=== PATIENT | male | born 1965 | race Caucasian/White ===

== ENCOUNTER 2022-11-30 09:00 | Inpatient (IN) | payer OTHER ==
[~2022-11-30] VITALS: Ht 182.9 cm; Wt 88.5 kg
[2022-11-30] MEDS ORDERED: LIPITOR20 MG PO (09:56)
[2022-12-05] MEDS ORDERED: ATORVASTATIN CA10 MG (08:15)
[2022-12-05] MEDS ORDERED: CELECOXIB200 MG (08:15)
[2022-12-05] MEDS ORDERED: BUPROPION XL300 MG (08:15)
[2022-12-05] MEDS ORDERED: CLONAZEPAM2 MG (08:15)
[2022-12-06] MEDS ORDERED: INTESTINEX680 M1 PO (08:24)
[2022-12-06] MEDS ORDERED: LEVSIN/SL0.125 MG SL (08:25)
== END 2022-12-06 09:53 | disposition home or self-care (01) | DRG 395 ==
LOC: O/R 12-05 05:12 → SURH 12-05 05:12
PROVIDERS: ADMIT Surgery; ATTEND Surgery
PROC: 0DJD8ZZ Inspection of Lower Intestinal Tract, Via Natural or Artificial Opening Endoscopic (ICD-10-PCS; 2022-12-05)
PROC: 3E0T3BZ Introduction of Anesthetic Agent into Peripheral Nerves and Plexi, Percutaneous Approach (ICD-10-PCS; 2022-12-05)
PROC: 0DBP8ZZ Excision of Rectum, Via Natural or Artificial Opening Endoscopic (ICD-10-PCS; principal; 2022-12-05 20:45)
DX: D12.8 Benign neoplasm of rectum (principal); Z20.822 Contact with and (suspected) exposure to COVID-19
CPT/HCPCS: 0184T; 64430; 45300